=== PATIENT | male | born 2000 | race Caucasian/White ===

== ENCOUNTER 2022-12-11 07:12 | Day surgery (SDC) | payer SELFPAY, OTHER ==
[2022-12-11] VITALS (13 sets, daily range): BP systolic 104–136; BP diastolic 45–78; PULSE 48–107; RESP 16–18; TEMP 36.6–37.8; O2SAT 93–100; BMI 27.8
[2022-12-11] MEDS: Lactated Ringers 1,000 ML 15 ML IV ×2 (07:56→13:11)
[2022-12-11] MEDS: Cefazolin 2 GM in 0.9% Normal Saline 100 ML IV (08:38)
[2022-12-11] MEDS: Epinephrine (1 mg/ml) 1 MG/ML VIAL (08:55)
--- NOTE | 2022-12-11 11:34 | DCINST_ITS ---
Discharge Instructions Follow Up Care Test Results: Test results from this visit will be discussed in further detail at your follow- up appointment, if applicable. Discharge Plan Admission Primary Reason for Your Visit: Right knee surgery Attending Provider: Colby Dubon Primary Care Provider: Care Physician,Lissett Primary Instructions Additional Instructions / Restrictions: Follow preprinted instructions from your surgeons office. Discharge Orders/Prescriptions Prescriptions: New oxycodone 5 mg Tablet 10 mg PO Q4H PRN PRN (Reason: Pain Score 6-10) 7 Days Qty: 42 0RF Referrals / Follow Up: Colby Dubon DO [Med Staff - Active Staff] - Within 2 Weeks Care Physician,No Primary [Primary Care Provider] - Disposition Disposition (needs filled in before D/C Order can be placed): Home, Self Care
--- NOTE | 2022-12-11 11:34 | OP.PCM_ITS ---
Report of Operation Date of Procedure: 12/11/22
--- NOTE | 2022-12-11 11:34 | PCM.OPRPT ---
Report of Operation Date of Procedure: 12/11/22 Description of Surgical Findings:: Preoperative diagnosis: 1. 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 [employer]rex fiber stitch all inside meniscal repair system x2 Intraoperative findings: Bucket-handle tear medial meniscus. Stable following fixation. Complete ACL rupture. Preoperative indications: This is an otherwise healthy 22-year-old male seen in the outpatient setting diagnosed with a right knee anterior cruciate ligament rupture and medial meniscus tear. She sustained injury approximately 6 months ago. MRI confirmed the diagnosis. Patient was recommended to have surgery around time of injury but elected to rehab. He has been working with some mechanical symptoms and instability but minimal pain. Due to persistent instability, patient followed back up in our office. I saw the patient in consultation. I recommended operative intervention in the form of right knee anterior cruciate ligament reconstruction and medial meniscus repair versus partial meniscectomy.. We discussed graft options. We settled on a quadriceps autograft. The risks, benefits, alternatives to the procedure was reviewed with the patient at length. Risks included but were not limited to bleeding, wound complications, infection, loss of life or limb, need for additional surgery, continued instability, persistent pain, posttraumatic arthritis, stiffness, difficulty returning to sport, risk of anesthesia, DVT or PE, neurovascular injury. Patient expressed understanding his risks and wished to proceed with surgery. Informed consent obtained in the office. Description of procedure: Patient was identified in preoperative holding area by name, medical record number, and date of . The operative extremity was marked. Informed consent confirmed with the patient. All questions were answered to patient satisfaction. At time of her procedure, patient was brought to the operative suite and positioned supine on a standard operating table. All bony prominences were well-padded. General anesthesia was induced and laryngeal mask airway placed. After securing the tube, I placed a well-padded pneumatic tourniquet on the upper thigh of the operative extremity. I first examined the leg under anesthesia. There was a positive pivot shift and Bertrand. We then positioned the operative extremity in a circumferential arthroscopic leg buckner. A well-leg buckner was placed on the patient's nonoperative thigh. We then dropped the foot of the bed 90 degrees. We then prepped and draped the operative lower extremity in a normal, sterile orthopedic fashion. We performed a timeout with all parties in attendance in agreement with the side, site, operation to be performed. No concerns were voiced and we elected to proceed with surgery. 2 g Ancef was administered for antibiotic prophylaxis prior to the incision by the anesthesia staff. Given the positive provocative findings and positive MRI findings consistent with ACL rupture, I elected to harvest the graft first. I planned a midline incision overlying the quadriceps tendon approximately 5 cm in length. Skin was sharply incised with a 15 blade scalpel through skin and subcutaneous tissue. Subcutaneous fat was cleared exposing the peritenon of the quadriceps. The quadriceps peritenon was carefully elevated and dissected free from the underlying tendon, in line with the skin incision. I then identified the insertion of the tendon on the superior pole of the patella. I utilized the parallel cutting guide 9 mm in diameter to establish the width of our tendon harvest. I sharply dissected the insertion off of the patella. I elevated a partial thickness graft. After gaining approximately 4 cm in length, I performed a whipstitch for fixation into the tendon with a FiberWire suture. I then utilized a nicole elevator and scalpel to continue to elevate the graft. I was able to elevate the tendon graft free to a length of 67 millimeters. This was cut sharply with the cigar cutting instrument from [employer]. The void in the quadriceps was then closed with 0 Vicryl suture. Peritenon was closed with 2-0 Vicryl suture in watertight fashion. The graft was moved to the back table where my orthodontist assistant, Mrs. Machado, began to prepare the graft. She prepared a standard all inside fixation with a tight rope attachment on the femoral side. The graft was pretensioned. After the graft was prepared, it was left under tension and kept fresh with a moist sponge. 9.5 was the final graft diameter. During time of graft preparation, I commenced diagnostic and operative arthroscopy. Establish a standard anterolateral portal with an 11 blade scalpel. Blunt tipped trocar and cannula was inserted through this portal as the knee was brought into full extension into the patellofemoral joint. Trocar was removed and arthroscope introduced. Examination of the knee revealed pristine patellofemoral cartilage. No loose bodies were identified. I turned my attention the medial compartment with a valgus stress of the knee. Bucket-handle tear was encountered of the medial meniscus. Standard anterior medial portal was established under direct visualization with an 11 blade scalpel. I then reduced the bucket-handle tear with a arthroscopic probe. I turned my attention to the intercondylar notch. The remnants of the ACL was then encountered. ACL rupture was confirmed. I resected the remaining portion of the ACL with a radial resector, marking the footprints with the radiofrequency ablator. I then performed a notchplasty in standard fashion with a 5.5 mm bur. Lateral compartment was entered with [id number] maneuver on the knee. Lateral meniscus demonstrated minimal degenerative fraying, no significant tearing otherwise. Cartilage appeared pristine. I turned my attention back to the medial meniscus. I placed a [place] knot via an outside in technique utilizing a #0 PDS suture. This reduced the meniscus well with compression applied. I proceeded with fixation of the bucket-handle tear. Posterior horn was reapproximated with a horizontal mattress fiber stitch from [employer] via all inside meniscal repair technique. Sutures were tensioned and cut flush with the repair stitch. I then turned my attention towards the posterior horn-body junction. Again a horizontal mattress fiber stitch all inside repair was performed. Sutures were tensioned and cut flush. At the mid body, I was unable to achieve appropriate trajectory with a all inside technique and elected to perform an outside in repair. I utilized [address] 2 separate horizontal mattress sutures within the meniscus body utilizing a 0 PDS suture as a passing suture and a 2-0 FiberWire repair suture. These 2 separate horizontal mattress sutures were tensioned and held tension along the skin with hemostats. Meniscus was probed and appeared quite stable following repair prior to tying knots. I then turned my attention back to the intercondylar notch. I then introduced the flip cutter drill guide through the anterior lateral portal and the camera was moved to the anterior medial portal. I positioned the drill guide to allow for 2 mm of back wall at approximately the 10:30 position on the lateral wall of the notch. I made a stab incision along the lateral thigh in line with the planned trajectory of the flip cutter. Skin, subcutaneous tissue, and IT band were sharply incised and dilated. Drill guide and drill were then passed down to the level of the lateral femoral cortex. We drilled through the lateral cortex into the intercondylar notch at the planned trajectory location. The flip cutter was then deployed to a diameter of 9.5 mm. The flip cutter was then used to retrograde drill the femoral socket to a depth of 35 mm. Flip cutter was then retracted and pulled from the wound. A fiber stick was then introduced through the femoral socket. The fiber wire was then retrieved out the anterior lateral portal and luggage tagged. Loose pieces of bone was debrided with a radial resector from the knee. I then switched the camera to the lateral portal. I placed the tibial drill guide through the anterior medial portal planning be tunnel placement at the [place] footprint of the ACL. I sharply incised the skin with an 11 blade scalpel through skin and subcutaneous tissues over the anterior medial tibia with planned trajectory of the drill course. I then drilled through the anterior medial tibia into the joint at the planned trajectory. I deployed the flip cutter to a diameter of 9.5 mm and drilled retrograde fashion for the tibial socket, approximately 27 mm in length. I then reversed the flip cutter to 3.5 mm and removed from the joint. I placed a tiger stick through the tibial tunnel and retrieved out the anterior medial portal. I then brought the graft to the surgical field. I retrieved the loop end of the femoral side shuttling suture through the anterior medial portal and attached to the suture ends of the femoral side button of the graft. We then passed the sutures and button through the femoral tunnel. The tight rope button was then deployed and engaged the lateral femoral cortex. We then sequentially tightened the graft to dock into the femoral tunnel. I then retrieve the passing suture for the tibial tunnel at the anteromedial portal and utilized it to pass the tibial side of the graft/sutures. Sutures were then retrieved out the tibial tunnel. I placed an ABS button through the tight rope mechanism is sequentially tightened to appropriate, maximum tension. The knee was then cycled 25 times to prevent creep. Final tightening was performed. I tied 5 half hitch knots over the tibial button. Sutures were then cut. The knee was thoroughly debrided lavage of any loose pieces of bone. Final images were obtained. No evidence of graft impingement was noted. I then made a 3 cm incision along the medial knee between the suture tails of the outside in repair of the medial meniscus. I sharply incised the skin and subcutaneous tissue. Blunt dissection was carried down to the medial retinaculum. I then tied sutures over top of the medial retinaculum ensuring appropriate tension via arthroscopic visualization. Sutures were cut. Wounds were copiously irrigated with normal saline. Tourniquet was deflated. Tourniquet was up for approximately 120 minutes. Hemostasis was excellent. I reapproximated the stab incisions with [id number] 4-0 nylon suture. Quadriceps harvest site was closed with interrupted buried 3-0 Vicryl suture in the dermis and skin finally approximated with 4-0 subcuticular Monocryl and skin glue. Patient tolerated procedure well without apparent complication. He was transferred to PACU in stable condition after the sterile compression dressing was applied and T ROM brace was set 0-90 degrees, locked in full extension. Need for skilled orthodontist assistant: Em Machado PA-C was critical to the outcome of the case. During the course of the procedure the physician orthodontist assistant played a vital role. Her intimate knowledge of my steps in the procedure aided in safe and expedient completion of the procedure. The PA played a vital role in positioning particularly in obtaining the appropriate positioning. The PA was also vital in the retraction of soft tissues during the exposure and protecting vital structures. She also assisted in graft preparation. The PA was also vital and obtaining fracture reduction and assisting with hardware placement. She also played a vital role in closure under direct supervision. Postoperative plan: Weightbearing as tolerated right lower extremity with hinged knee brace locked in extension. 0-90 degrees flexion of the right knee while in bed. Maintain T ROM brace except for hygiene purposes. We will limit flexion to 90 degrees for 6 weeks postoperatively. Physical therapy has been scheduled for early next week. Ice and elevation encouraged. Tylenol and ibuprofen scheduled. Oxycodone as needed for breakthrough pain. Follow-up in 2 weeks for suture removal and range of motion check. Aspirin 81 mg twice daily for DVT prophylaxis starting this evening.
== END 2022-12-11 15:27 | disposition home or self-care (01) ==
LOC: SDC 07:16 → AC 07:16
PROVIDERS: Referring Provider Student in an Organized Health Care Education/Training Program; Visit Provider Student in an Organized Health Care Education/Training Program
PROC: (CPT 29888; principal; 2022-12-11 08:10)
DX: S83.511A Sprain of anterior cruciate ligament of right knee, initial encounter (principal); S83.211A Bucket-handle tear of medial meniscus, current injury, right knee, initial encounter; X58.XXXA Exposure to other specified factors, initial encounter; Y93.68 Activity, volleyball (beach) (court); E66.3 Overweight; Z68.26 Body mass index [BMI] 26.0-26.9, adult; Z87.891 Personal history of nicotine dependence
CPT/HCPCS: 29888; 29882; 64447; C1713; J7120; J2405